=== PATIENT | male | born 2000 | race African-American/Black ===

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

== ENCOUNTER → 2023-04-13 18:43 | Emergency (ER) | payer MEDICAID, OTHER ==
[~2023-04-13] VITALS: Ht 182.9 cm; Wt 98.0 kg
[2023-04-13 18:47] VITALS: BP 136/86; PULSE 82; RESP 16; TEMP 98.3; O2SAT 100
== END | disposition home or self-care (01) ==
LOC: ER 18:43
DX: M25.562 Pain in left knee (principal); J45.909 Unspecified asthma, uncomplicated; V49.9XXA Car occupant (driver) (passenger) injured in unspecified traffic accident, initial encounter; Y93.89 Activity, other specified; Y92.89 Other specified places as the place of occurrence of the external cause; Y99.8 Other external cause status
CPT/HCPCS: 99283